=== PATIENT | female | born 1970 | race American Indian/Alaskan Native ===

== ENCOUNTER 2017-02-09 13:38 | Emergency (ER) | payer OTHER ==
[2017-02-09 13:48] VITALS: BP 118/84
[2017-02-09] MEDS ORDERED: FLEXERIL PO ONE (15:28)
[2017-02-09] MEDS ORDERED: TORADOL IM ONE (15:28)
--- NOTE | 2017-02-09 16:24 | XRay Report ---
RIGHT HAND: History: Thumb pain The bony architecture is intact. Bony alignment is normal. No soft tissue abnormalities are seen. The joint spaces appear preserved. IMPRESSION: Normal right hand.
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
== END 2017-02-09 17:03 | disposition home or self-care (01) ==
LOC: ED 13:38
DX: M54.5 Low back pain (principal); M25.551 Pain in right hip; M79.644 Pain in right finger(s); R10.9 Unspecified abdominal pain; Z88.6 Allergy status to analgesic agent
CPT/HCPCS: 72170; 73120; 96372; 99283; J1885